=== PATIENT | female | born 1985 | race Caucasian/White ===

== ENCOUNTER 2016-12-22 16:27 | Emergency (ER) | payer OTHER ==
[~2016-12-22] VITALS: Ht 167.6 cm; Wt 90.7 kg
[2016-12-22] MEDS ORDERED: BENADRYL ALLERG25 M5 PO (17:02)
[2016-12-22] MEDS ORDERED: PREDNISONE10 MG PO (17:02)
== END 2016-12-22 18:17 | disposition home or self-care (01) ==
LOC: ED 16:27
DX: L23.7 Allergic contact dermatitis due to plants, except food (principal)

== ENCOUNTER 2024-09-21 09:33 | Emergency (ER) | payer SELFPAY ==
[~2024-09-21] VITALS: Ht 162.5 cm; Wt 98.9 kg
[~2024-09-21 09:33] MED LIST: BENADRYL ALLERG25 M5 PO; PREDNISONE10 MG PO
[2024-09-21] MEDS ORDERED: Lactated Ringer's Solution 1,000 ML IV SCH (11:00)
[2024-09-21 11:13] LABS: BASO % 0.6 % (0.0-1.0); EOS # 0.2 10*3/uL (0.0-0.4); EOS % 2.9 % (1.0-4.0); HEMATOCRIT 44.1 % (37.0-47.0); MEAN CELL VOLUME 82.9 fl (81.0-99.0); MEAN CORPUSCULAR HGB 28.2 pg (27.0-31.0); MEAN PLATELET VOLUME 8.4 fl (9.6-12.3); MONO # 0.6 10*3/uL (0.1-1.0); MONO % 9.6 % (3.0-9.0); NEUT # 3.4 10*3/uL (2.3-7.9); NEUT % 51.8 % (47.0-73.0); PLATELET COUNT AUTOMATED 327 10*3/uL (130-400); RED BLOOD COUNT 5.32 10*6/uL (4.10-5.10); RED CELL DISTRI WIDTH 12.8 % (0-14.5); WHITE BLOOD COUNT 6.6 10*3/uL (4.8-10.8)
[2024-09-21 11:34] LABS: ALKALINE PHOSPHATASE 64 U/L (46-116); BUN 11 mg/dl (9-23); CHLORIDE 99 mmol/L (98-107); POTASSIUM 4.1 mmol/L (3.4-5.1); SGPT/ALT 28 U/L (5-49); TOTAL PROTEIN 7.9 gm/dL (6.0-8.0)
[2024-09-21] MEDS ORDERED: Labetalol Hydrochloride 100 MG TAB PO ONE (13:15)
[2024-09-21] MEDS ORDERED: LOPRESSOR50 M1 PO (13:17)
[2024-09-21] MEDS ORDERED: METFORMIN HYDR500 MG PO (13:17)
== END 2024-09-21 15:47 | disposition home or self-care (01) ==
LOC: ED 09:33
PROVIDERS: Emergency Medicine
DX: I10 Essential (primary) hypertension (principal); E11.9 Type 2 diabetes mellitus without complications; R20.0 Anesthesia of skin; R68.2 Dry mouth, unspecified; R42 Dizziness and giddiness